=== PATIENT | female | born 1950 | race Caucasian/White ===

== ENCOUNTER 2021-03-18 16:12 | Emergency (ER) | payer MEDICARE, OTHER ==
[2021-03-18] MEDS ORDERED: Lidocaine 1% with EPINEPHrine 1:100,000 10 ML MDV INJECT ONE (16:29)
--- NOTE | 2021-03-18 16:52 | EDM.PDOC ---
ED HPI GENERAL MEDICAL PROBLEM - General Chief Complaint: Laceration Stated Complaint: FOREHEAD LAC Time Seen by Provider: 03/18/21 16:21 Source of Information: Reports: Patient History Limitations: Reports: No Limitations - History of Present Illness INITIAL COMMENTS - FREE TEXT/NARRATIVE: The patient presents with a laceration to her forehead and left elbow injury. She was at [employer] and someone stopped in front of her and she fell and hit her head. She had no LOC. She has no headache. She has a 3cm laceration to her mid forehead. Her tetanus is up to date. She has pain to her left elbow with limited range of motion. She also has some pain to both hands and knees. Onset: Sudden Duration: Minutes: Location: Reports: Head, Upper Extremity, Left (elbow) Quality: Reports: Sharp Severity: Moderate Improves with: Reports: None Worsens with: Reports: None Associated Symptoms: Reports: No Other Symptoms Face/Facial Pain Score (Numeric/FACES): 1 Left Elbow Pain Score (Numeric/FACES): 3 - Related Data Allergies Allergy/AdvReac Type Severity Reaction Status Date / Time amlodipine Allergy Severe Swelling Verified 03/18/21 16:31 Home Meds: Home Meds Aspirin [Halfprin] 81 mg PO DAILY 03/18/21 [History] Hydrocodone/Acetaminophen [Hydrocodone-Acetamin 5-325 mg] 1 - 2 each PO Q6H PRN #10 tablet 03/18/21 [Rx] Losartan [Cozaar] 100 mg PO DAILY 03/18/21 [History] Magnesium 250 mg PO DAILY 03/18/21 [History] Metoprolol Succinate 50 mg PO DAILY 03/18/21 [History] Pantoprazole Sodium [Protonix] 40 mg PO DAILY 03/18/21 [History] atorvaSTATin [Lipitor] 5 mg PO DAILY 03/18/21 [History] Past Medical History Cardiovascular History: Reports: High Cholesterol, Hypertension Gastrointestinal History: Reports: Hiatal Hernia - Infectious Disease History Infectious Disease History: Reports: Chicken Pox, Measles, Shingles - Past Surgical History GI Surgical History: Reports: Appendectomy Social & Family History - Tobacco Use Tobacco Use Status *Q: Never Tobacco User - Caffeine Use Caffeine Use: Reports: Coffee, Soda, Tea - Recreational Drug Use Recreational Drug Use: No ED ROS GENERAL - Review of Systems Review Of Systems: See Below Constitutional: Reports: No Symptoms HEENT: Reports: Other (3cm laceration to the forehead) Respiratory: Reports: No Symptoms Cardiovascular: Reports: No Symptoms Endocrine: Reports: No Symptoms GI/Abdominal: Reports: No Symptoms : Reports: No Symptoms Musculoskeletal: Reports: Other (Left elbow pain. Left and right hand pain and left and right knee pain.) ED EXAM, SKIN/RASH Exam: See Below Exam Limited By: No Limitations General Appearance: Alert, No Apparent Distress Ears: Normal External Exam Nose: Normal Inspection Head: Other (3cm laceration to the mid forehead) Neck: Normal Inspection, Supple, Non-Tender Respiratory/Chest: No Respiratory Distress Extremities: Other (Mild pain upon palpation to the left elbow with mild edema. Good sensation and pulses distally. Her hands and knees show no sign of injury.) ED SKIN PROCEDURES - Laceration/Wound Repair Forehead Appearance: Subcutaneous, Irregular Anesthetic Type: Local Local Anesthesia - Lidocaine (Xylocaine): 1% with EPI Skin Prep: Saline Exploration/Debridement/Repair: Wound Explored, In a Bloodless Field, Explored to Base Closed with: Sutures Lac/Wound length In cm: 3 Suture Size: 5-0 # of Sutures: 7 Suture Type: Nylon, Interrupted, Simple Tetanus Status Addressed: Yes Complications: No - Splinting Left Upper Extremity Splint Site: Left elbow Pre-Procedure NV Status: Normal Post-Procedure NV Status: Normal Splint Material: Fiberglass Splint Design: Gutter Applied & Form Fitted By: Provider Provider Post-Splint Application NV Check: NV Status Normal, Good Position Complications: No Course - Vital Signs Last Recorded V/S: Last Vital Signs Temp 98.3 F 03/18/21 16:27 Pulse 73 03/18/21 16:27 Resp 20 03/18/21 16:27 BP 152/54 H 03/18/21 16:27 Pulse Ox 98 03/18/21 16:27 - Orders/Labs/Meds Orders: Active Orders 24 hr Category Date Time Status Elbow Min 3V Lt [CR] Stat Exams 03/18/21 16:46 Taken Meds: Medications Discontinued Medications Generic Name Dose Route Start Last Admin Trade Name Freq PRN Reason Stop Dose Admin Lidocaine/Epinephrine 10 ml 03/18/21 16:29 03/18/21 16:56 Lidocaine 1% With Epinephrine 1:100,000 10 Ml Mdv INJECT 03/18/21 16:30 10 ml ONETIME ONE Administration - Re-Assessments/Exams Free Text/Narrative Re-Assessment/Exam: 03/18/21 16:52 I will get an x-ray of her elbow and suture her forehead. 03/18/21 17:48 The x-ray does show a radial head fracture. I put the patient in a splint. I sutured her forehead. Departure - Departure Time of Disposition: 17:50 Disposition: Home, Self-Care 01 Condition: Good Clinical Impression: Fall Qualifiers: Encounter type: initial encounter Qualified Code(s): W19.XXXA - Unspecified fall, initial encounter Left radial head fracture Qualifiers: Encounter type: initial encounter Fracture type: closed Fracture alignment: nondisplaced Qualified Code(s): S52.125A - Nondisplaced fracture of head of left radius, initial encounter for closed fracture Forehead laceration Qualifiers: Encounter type: initial encounter Qualified Code(s): S01.81XA - Laceration without foreign body of other part of head, initial encounter - Discharge Information *PRESCRIPTION DRUG MONITORING PROGRAM REVIEWED*: Not Applicable *COPY OF PRESCRIPTION DRUG MONITORING REPORT IN PATIENT SANJUANITA: Not Applicable Prescriptions: Hydrocodone/Acetaminophen [Hydrocodone-Acetamin 5-325 mg] 1 - 2 each PO Q6H PRN #10 tablet PRN Reason: Pain Referrals: PCP,Not In Area [Primary Care Provider] - Forms: ED Department Discharge Additional Instructions: Ice your elbow for 15 minutes 3 times per day for 2 days. Try to keep your elbow elevated above your heart as much as you can for 2 days to reduce swelling. Take tylenol or motrin as needed for pain. If that does not help, try the hydrocodone. Clean the laceration 2 times per day with warm soapy water and apply antibiotic ointment after. Have the sutures removed in about a week. Follow up with an orthopedic surgeon when you get home. Sepsis Event Note (ED) - Evaluation Sepsis Screening Result: No Definite Risk - Focused Exam Vital Signs: Vital Signs Temp Pulse Resp BP Pulse Ox 03/18/21 16:27 98.3 F 73 20 152/54 H 98 - My Orders Last 24 Hours: My Active Orders 03/18/21 16:46 Elbow Min 3V Lt [CR] Stat - Assessment/Plan Last 24 Hours: My Active Orders 03/18/21 16:46 Elbow Min 3V Lt [CR] Stat
--- NOTE | 2021-03-19 08:24 | CR ---
Left elbow: 4 views left elbow were obtained. Comparison: No prior elbow study is available. Mildly displaced radial head fracture is noted. No additional fracture or other bony abnormality is seen. Joint effusion is present. Soft tissue swelling is also noted. Impression: 1. Mildly displaced radial head fracture with soft tissue swelling and joint effusion. Diagnostic code #3
== END 2021-03-18 18:15 | disposition home or self-care (01) ==
LOC: JD.ED 16:12
DX: S52.125A Nondisplaced fracture of head of left radius, initial encounter for closed fracture (principal); S01.81XA Laceration without foreign body of other part of head, initial encounter; E78.00 Pure hypercholesterolemia, unspecified; I10 Essential (primary) hypertension; Z79.82 Long term (current) use of aspirin; Z79.899 Other long term (current) drug therapy; Z88.8 Allergy status to other drugs, medicaments and biological substances; W18.09XA Striking against other object with subsequent fall, initial encounter
CPT/HCPCS: 12013; 29105; 29125; 73080-26-LT; 73080-LT; 99283; 99283-25